=== PATIENT | female | born 1995 | race Two or more races ===

== ENCOUNTER 2018-07-01 02:22 | Emergency (ER) | payer BC, MEDICAID ==
[2018-07-01] MEDS ORDERED: BUPIVACAINE HCL 0.5 % INJ/PF 30 ML SDV INJ ONE (02:57)
[2018-07-01] MEDS ORDERED: LIDOCAINE 1% INJ (10 MG/ML) 10 ML MDV INJ ONE (02:57)
[2018-07-01] MEDS ORDERED: LIDOCAINE 1% INJ-PF (10 MG/ML) 30 ML SDV INJ ONE (02:57)
[2018-07-01] MEDS ORDERED: HYDROCODONE/ACETAMINOPHEN 5-325 MG (6 TAB/ER DISP) PO PRN (03:38)
[2018-07-01] MEDS ORDERED: SULFAMETHOXAZOLE/TRIMETHOPRIM 800-160 MG TABLET PO ONE (03:38)
[2018-07-01] MEDS ORDERED: CEPHALEXIN 500 MG CAPSULE PO ONE (03:38)
[2018-07-01 04:32] VITALS: BP 149/72
--- NOTE | 2018-07-01 04:41 | ER Document Report ---
Entered by MONICA PLUMMER SCRIBE 07/01/18 0314 Acting as scribe for:VIKTORIA SMITH DO ED General - General Chief Complaint: Finger Injury Stated Complaint: FINGER INJURY Time Seen by Provider: 07/01/18 02:50 Primary Care Provider: JANICE KRISHNA DO [ACTIVE STAFF] - Follow up as needed Mode of Arrival: Ambulatory Information source: Patient Notes: Patient is a 23 year old female presenting to the emergency department complaining of left 3rd digit pain and swelling onset 2 days ago, worsening today. Patient states the pain has progressively worsened and states she can not sleep due to the pain. She attempted to drain it yesterday but was unable to do it herself due to pain. Also admits picking her nails but otherwise denies any trauma. She reports having cold symptoms earlier this week and a temperature of 99.3 today. TRAVEL OUTSIDE OF THE [place] IN LAST 30 DAYS: No - Related Data Allergies/Adverse Reactions: No Known Allergies Allergy (Verified 05/30/12 17:19) Past Medical History - General Information source: Patient - Social History Smoking Status: Current Some Day Smoker Cigarette use (# per day): Yes Chew tobacco use (# tins/day): No Smoking Education Provided: No Frequency of alcohol use: None Family History: Reviewed & Not Pertinent Pulmonary Medical History: Reports: Hx Asthma Review of Systems - Review of Systems Constitutional: No symptoms reported EENT: No symptoms reported Cardiovascular: No symptoms reported Respiratory: No symptoms reported Gastrointestinal: No symptoms reported Genitourinary: No symptoms reported Female Genitourinary: No symptoms reported Musculoskeletal: See HPI Skin: No symptoms reported Hematologic/Lymphatic: No symptoms reported Neurological/Psychological: No symptoms reported -: Yes All other systems reviewed and negative Physical Exam - Vital signs Vitals: Temp Pulse Resp BP Pulse Ox 98.6 F 78 16 155/93 H 98 07/01/18 02:27 07/01/18 02:27 07/01/18 02:27 07/01/18 02:27 07/01/18 02:27 - Notes Notes: GENERAL: Alert, interacts well. No acute distress. HEAD: Normocephalic, atraumatic. EYES: Pupils equal, round, and reactive to light. Extraocular movements intact. ENT: Oral mucosa moist, tongue midline. NECK: Full range of motion. Supple. Trachea midline. LUNGS: No respiratory distress. EXTREMITIES: Moves all 4 extremities spontaneously. There is a small collection of pus on the ulnar aspect of the left 3rd finger just lateral to the nail, the distal aspect of the finger is erythematous and swollen, tender to palpation. Palmar aspect also contains swelling and erythema to the pulp. Able to fully extend and flex left 3rd digit although she complains of pain when doing so. Consistent with paronchyia, suspicious for a felon as well, no evidence of tenosynovitis, minimal lymphangitic streaking down the ulnar aspect of the left third finger, reaches the PIP joint. NEUROLOGICAL: Alert and oriented x3. Normal speech. PSYCH: Normal affect, normal mood. Course - Re-evaluation Re-evalutation: 07/01/18 04:00 Examination shows a paronychia as well as an early felon. Patient had the paronychia drained and a incision was made on the bilateral aspects of her third left finger, pus was obtained from the paronychia and some high-pressure bloody drainage was obtained from the pad of the finger. No evidence of tenosynovitis at this time full flexion and extension. Patient is instructed to use Epsom salt soaks, Bactrim and Keflex and return to the emergency department for increasing pain, swelling or difficulty bending her finger. - Vital Signs Vital signs: Temp Pulse Resp BP Pulse Ox 98.2 F 79 16 149/72 H 99 07/01/18 04:31 07/01/18 04:31 07/01/18 04:31 07/01/18 04:31 07/01/18 04:31 Procedures - Incision and Drainage Left Finger 3rd digit Type: Complex, Multiple Anesthetic type: 1% Lidocaine, 0.5% Bupivacaine mL's of anesthetic: 6 - digital block Blade size: 11 I&D procedure: Shurclens applied Incision Method: Incision made by scalpel Amount/type of drainage: Approximately 1 mL amount of purulent drainage from the paronychia, 5 mL's Notes: 07/01/18 04:04 Approximately 1 mL purulent drainage from the paronychia, approximately 5 mL's of bloody drainage from the felon. Incisions were made to the lateral aspects of the pulp of the left third digit. Traditional fishmouth incision was not performed. Patient maintained full range of motion of her finger. No evidence of tendon damage. Discharge - Discharge Clinical Impression: Paronychia of finger of left hand, Felon of finger of left hand Condition: Stable Disposition: HOME, SELF-CARE Additional Instructions: Reagan (Fingertip Abscess) You have a pus-forming infection of your fingertip. This is called a felon. A felon can cause permanent damage to the finger pad if untreated. If the infection has formed a pocket of pus, it will require incision and drainage (lancing). Sometimes a packing or wick is placed into the abscess cavity for a few days. Antibiotics are usually prescribed. Elevation and application of heat can be helpful. The wound will heal with surprisingly little scar. This will take a two or three weeks. If you develop fever, chilling, worsening pain, or increasing swelling in the area, call the doctor or return immediately. Paronychia You have an infection between the nail and the surrounding skin, called a paronychia. The germs infect the area after a minor skin injury, such as a hangnail. This infection is treated by releasing the pus. This is usually done by the skin from the nail. If the infection has spread underneath the nail, partial removal of the nail may be necessary. Hot-soak the area three or four times daily. Antibiotics are often given, but are not always necessary. Healing takes about a week. If pain or swelling becomes severe or if you develop fever or chills, call the doctor or return for re-examination. Epsom Salt Soaks Soak the wound area in a container of warm epsom salt water. If you can't get the wound area into a bucket or zelaya, use a folded towel soaked in the epsom salt solution and apply to the area. Use clean hot tap water (about the temperature of a very warm bath), mixing in about one (1) teaspoon for every pint of water. Two gallon --> 16 teaspoons Epsom Salts One gallon --> 8 teaspoons Epsom Salts Two quarts --> 4 teaspoons Epsom Salts One quart --> 2 teaspoons Epsom Salts Soak the wound for about 20 minutes while gently moving it around in the water. Repeat this four (4) times a day. Prescriptions: Cephalexin Monohydrate [Keflex 500 mg Capsule] 100 mg PO BID #28 capsule Sulfamethoxazole/Trimethoprim [Bactrim Ds Tablet] 1 each PO BID #14 tablet Referrals: JANICE KRISHNA DO [ACTIVE STAFF] - Follow up as needed Scribe Attestation: 07/01/18 04:41 I personally performed the services described in the documentation, reviewed and edited the documentation which was dictated to the scribe in my presence, and it accurately records my words and actions. I personally performed the services described in the documentation, reviewed and edited the documentation which was dictated to the scribe in my presence, and it accurately records my words and actions.
== END 2018-07-01 04:32 | disposition home or self-care (01) ==
LOC: ER 02:22
DX: L03.012 Cellulitis of left finger (principal); M79.645 Pain in left finger(s)
CPT/HCPCS: 99283; 10060; J3490